=== PATIENT | female | born 1930 | race Caucasian/White ===

== ENCOUNTER 2019-06-12 21:50 | Observation (INO) ==
--- NOTE | 2019-06-12 22:25 | Emergency Department Note ---
ED Disposition Clinical Impression: Transient cerebral ischemia Qualifiers: Transient cerebral ischemia type: unspecified Qualified Code(s): G45.9 - Transient cerebral ischemic attack, unspecified Disposition: Admitted as Observation Condition on Discharge: Good Referrals: Rell Jimenez MD [Primary Care Provider] - - Critical Care Critical Care Time: No Attestation: On 06/12/19, the high probability of a clinically significant, sudden or life threatening deterioration of the following system(s) required my full and direct attention, intervention and personal management. The time I documented below is in addition to time spent performing reported procedures but includes the following listed in this critical care notation. Medical Decision Making - Medical Records Medical records reviewed: Yes: I reviewed the patient's medical records. - Aureliano Inquiry Pt receiving controlled substance: No Vital Signs: 06/12/19 21:55 Temperature 98.7 F Temperature Source Oral Pulse Rate [Right] 61 Respiratory Rate 18 Blood Pressure [Right Arm] 172/69 H Blood Pressure Mean [Right Arm] 103 02 Sat by Pulse Oximetry 92 L - Lab Data Lab results reviewed: Yes: I reviewed the patient's lab results. Lab Results 06/12/19 22:11: POC Glucose 84 06/12/19 22:26: WBC 6.0, RBC 4.90, Hgb 13.3, Hct 41.2, MCV 84.1, MCH 27.1, MCHC 32.3, RDW 12.8, Plt Count 231, MPV 6.9 L, Neut % (Auto) 51.2, Lymph % (Auto) 36.4, [place] % (Auto) 8.2, Eos % (Auto) 3.5, Baso % (Auto) 0.7, Neut # (Auto) 3.1, Lymph # (Auto) 2.2, [place] # (Auto) 0.5, Eos # (Auto) 0.2, Baso # (Auto) 0.0 06/12/19 22:26: Sodium 137, Potassium 4.0, Chloride 100, Carbon Dioxide 30, Anion Gap 11.0, BUN 16, Creatinine 0.89, Estimated Creat Clear 38, Estimated GFR 60, Est GFR ( Amer) 72, Glucose 89, Calcium 8.8, Total Bilirubin 0.5, AST 15, ALT 16, Alkaline Phosphatase 87, Total Protein 7.1, Albumin 3.3 L, Globulin 3.8 H, Albumin/Globulin Ratio 0.9 L 06/12/19 22:37: PT 10.3, INR 0.99, APTT 27.9 Result diagrams: 06/12/19 22:26 06/12/19 22:26 Orders (Tests/Meds): ED MEDICATIONS Generic Name Dose Route Start Last Admin Trade Name Shell PRN Reason Stop Dose Admin Sodium Chloride 1,000 mls @ 999 mls/hr 06/12/19 22:15 Sod Chlor 0.9% 1000ml Bag IV 06/12/19 23:15 .Q1H1M [facility] ORDERS Category Date Time Status CT head/brain wo con Stat Cat Scan 06/12/19 22:00 Taken XR chest portable Stat Exams 06/12/19 22:00 Ordered Lactic Acid Stat Lab 06/12/19 22:37 Received Troponin I Stat Lab 06/12/19 22:52 Ordered Urinalysis and Microscopic Stat Lab 06/12/19 22:00 Ordered Blood Culture Stat Micro 06/12/19 22:36 Received - Radiology Data #1 Image(s): Chest Image Reviewed: Yes I reviewed the patient's radiology image Preliminary Findings: Abnormal (nonspecific ) - CT Data CT Scan: Head Time Received: 22:[address] Reviewed: Yes: I have viewed the radiologist's interpretation Preliminary Findings: Abnormal - ECG Data Tracing #1 Arrhythmias present: wandering atrial pacemaker Ischemic changes: non-specific ST-T wave changes - Physician Consults Physician Consulted: ming Reason -: Admission Neuro HPI - General Chief Complaint: Neuro Symptoms/Deficit Stated Complaint: confussed Time Seen by Provider: 06/12/19 22:00 Mode of Arrival: Wheelchair Limitations: Altered Mental Status Description of Symptoms (Recalled from ER Triage Doc. by RN): Pt family states that pt called them and stated she was confused and "not feeling right" Family stated when they got to the house she was very weak and unable to walk or recall what had happened today. Pt family states they are unsure of last known normal time but this started 1.5 hours ago. - History of Present Illness HPI Narrative: acute episode of change in speech and more confused with sl weakness to rt lower and upper ext - better now - no fever or rash and no trauma Onset (ago): hour(s) Timing confirmed by: family member Location: right leg History of same: Yes Severity: moderate Quality: weak, improving On Anticoagulants: No Associated symptoms: denies other symptoms Treatments Prior to Arrival: none - Related Data Home Medications: Home Medications Medication Instructions Recorded Confirmed Atorvastatin Calcium [Atorvastatin 20 mg PO DAILY 06/14/18 06/12/19 20mg Tab] Lisinopril [Lisinopril 40mg Tablet] 40 mg PO DAILY 06/14/18 06/12/19 clonazePAM [Clonazepam] 1 mg PO TID 06/14/18 06/12/19 Temazepam [Restoril 15mg capsule] 15 mg PO HS 12/31/18 06/12/19 Rivastigmine [Exelon 4.6mg/24hr 1 patch TOPICAL DAILY 06/12/19 06/12/19 Patch] Allergies/Adverse Reactions: Allergies Allergy/AdvReac Type Severity Reaction Status Date / Time No Known Drug Allergies Allergy Unknown Verified 01/14/18 14:39 Stroke Alert/NIH Score - LOC Stroke Alert: Yes Location of Alert: Emergency Department Level of Consciousness: Alert LOC Questions: Answers both correctly LOC Commands: Obeys both correctly - Facial/Visual Best Gaze: Normal Visual: No visual loss Facial Palsy: Normal - Motor Motor Response, Left Arm: No drift/Amputation/Fused Motor Response, Right Arm: No drift/Amputation/Fused Motor Response, Left Leg: No drift/Amputation/Fused Motor Response, Right Leg: Drift - Sensory/Language Limb Ataxia: Absent Sensory: Normal Best Language: No aphasia Dysarthria: Normal speech, Intubated or Barrier present - NIH Score Stroke Risk Score: 1 H History - Hepatitis A Screen Drug use history?: No High risk sexual behaviors?: No History of sexually transmitted infection?: No Currently employed?: No Childcare worker?: No Do you have indoor plumbing?: Yes Do you have electricity?: Yes Attestation statement:: This patient has been screened for Hepatitis A risk factors. I have reviewed the patient's past medical history: Yes Medical History: Reports:: Anxiety, Gastroesophageal Reflux Disease(GERD), Hyperlipidemia, Hypertension Denies:: Cancer, Diabetes Mellitus Type 1, Diabetes Mellitus Type 2, MRSA Other Surgeries: Yes: Other (unknown dilation "in neck" 4-5 years ago) Amputation: No Fractures: No - Social History Smoking Status: Never smoker Alcohol Intake: never Occupational Status: retired Housing: apartment - Psychiatric History Pschychiatric History:: Reports:: Anxiety ROS Obtained: Yes All systems reviewed & no additional complaints - Constitutional Constitutional: Denies fever(s) - Eyes Eyes: Denies change in vision - ENT Ears, Nose, Mouth, and Throat: Denies sore throat - Cardiovascular Cardiovascular: Denies chest pain, Denies dyspnea - Respiratory Respiratory: No cough - Gastrointestinal Gastrointestingal: Denies: abdominal pain - Genitourinary Female Genitourinary: Denies flank pain - Musculoskeletal Musculoskeletal: Denies joint pain - Integumentary/Breasts Skin/Breast: Denies rash - Neurologic Neurologic: Reports as per HPI, Reports abnormal speech, Reports confusion, Denies frequent falls, Denies headache(s), Denies tingling/numbness/burning sensations, Denies seizure-like activity Physical Exam - General General appearance: alert, in no apparent distress - Head Head exam: normocephalic - Eye Eye exam: Present: PERRL, EOMI. Absent: scleral icterus - ENT ENT exam: Present: mucous membranes dry - Neck Neck exam: Present: trachea midline - Respiratory Respiratory exam: Absent: respiratory distress - Cardiovascular Cardiovascular exam: Present: regular rate, systolic murmur, +S4 - Abdominal Exam Abdominal exam: Present: soft - Extremities Exam Extremities exam: Absent: calf tenderness - Neurological Exam Neurological exam: Present: alert, CN II-XII intact. Absent: normal gait, motor sensory deficit - Psychiatric Psychiatric exam: Present: normal affect - Skin Skin exam: Absent: rash
[2019-06-12 22:37] LABS: Basophils % 0.7 % (0.1-2.0); Eosinophils # 0.2 K/mm3 (0.0-0.4); Eosinophils % 3.5 % (0.1-12.0); Hematocrit 41.2 % (37.0-47.0); Hemoglobin 13.3 g/dL (12.2-16.2); Lymphocytes # 2.2 K/mm3 (0.7-4.5); Lymphocytes % 36.4 % (10-50); Mean Corpuscular HGB Conc 32.3 g/dL (31.8-35.4); Mean Corpuscular Volume 84.1 fl (81-99); Mean Platelet Volume 6.9 fl (7.4-10.4); Monocytes # 0.5 K/mm3 (0.1-1.0); Monocytes % 8.2 % (1.7-9.3); Neutrophils # 3.1 K/mm3 (1.8-7.8); Neutrophils % 51.2 % (37.0-80.0); Platelet Count 231 K/mm3 (142-424); Red Cell Distribution Width 12.8 % (11.5-17.5)
[2019-06-12 22:48] LABS: Albumin Level 3.3 gm/dL (3.4-5.0); Albumin/Globulin Ratio 0.9 (1.1-1.8); Bilirubin,Total 0.5 mg/dL (0.2-1.0); Calcium 8.8 mg/dL (8.5-10.1); Globulin 3.8 gm/dl (1.3-3.2); Total Protein,Serum 7.1 gm/dL (6.4-8.2)
[2019-06-12 22:58] LABS: Activated Partial Thrombo Time 27.9 seconds (23.6-34.0); INR 0.99 (0.9-1.1); Prothrombin Time 10.3 seconds (9.4-11.8)
[2019-06-12 23:11] LABS: Appearance,Urine CLEAR (Clear); Bilirubin,Urine Negative (Negative); Blood, Urine Negative (Negative); Color,Urine YELLOW (Yellow); Glucose,Urine (UA) Negative (Negative); Ketones,Urine Negative (Negative); Leukocyte Esterase,Urine Negative (Negative); Microscopic, Urine URINE MICROSCOPIC (MICROSCOPIC); PH,Urine 6.5 (5.0-8.5); Protein,Urine Negative (Negative); Urobilinogen,Urine 0.2 EU/dl (0.2)
[2019-06-12 23:16] LABS: WBC,Urine Occasional #/hpf (0-3)
[2019-06-12 23:17] LABS: Bacteria,Urine Trace /lpf
--- NOTE | 2019-06-13 07:03 | History & Physical Report ---
*Admission Date: 06/12/19 *Chief complaint: Weakness and confusion *History of present illness: 89-year-old female with hypercholesterolemia, anxiety disorder, dementia presented to the emergency department with family due to concerns about change in patient's behavior and apparent confusion. History this morning is taken from her great-grandson's who is at bedside. According to her the patient seemed quite energetic and almost agitated yesterday during the day. Then when talking with her daughter in the evening it became apparent that something had changed. Patient was confused when speaking with her daughter on the phone and asking questions like "where am I ", "what day is it". Her speech was altered as well and was slurred. Family decided to bring patient to the emergency department. Patient also complained of her right arm and leg feeling as if it was asleep. Patient was evaluated in the emergency department. Blood pressure was elevated on presentation. ER note indicates patient had a right pronator drift but as the stay prolonged in the ER symptoms resolved. Patient was d iagnosed with a TIA and admitted. This morning the patient cannot tell me why she came to the ER or why she is in the hospital [facility] History I have reviewed the patient's past medical history: Yes Medical History: Reports:: Anxiety, Gastroesophageal Reflux Disease(GERD), Hyperlipidemia, Hypertension Denies:: Cancer, Diabetes Mellitus Type 1, Diabetes Mellitus Type 2, MRSA *Have you ever received a pneumonia vaccine?: Yes *Have you received a flu vaccine this season?: Yes Other Medical History: Reports: Arthritis Other Surgeries: Yes: Other (unknown dilation "in neck" 4-5 years ago) Amputation: No Fractures: No - *Social History Smoking Status: Former smoker Tobacco Type: cigars Alcohol Intake: never *Occupational Status:: retired Housing: apartment *Travel in the last 8 weeks: None - Psychiatric History Expresses thoughts of harming self/others: None Suicide Plan Description: No Plan Pschychiatric History:: Reports:: Anxiety Family Hx:: Bleeding Disorder, Coronary Artery Disease, Diabetes, Heart Attack, Hyperlipidemia, Hypertension, Stroke Review of Systems - Review of Systems Review of systems:: unable to obtain (Unable to obtain from patient due to significant memory deficit) - *Neurologic Reports abnormal speech, Reports confusion, Denies frequent falls, Denies headache(s), Denies tingling/numbness/burning sensations, Denies seizure-like activity Meds Home Medications Medication Instructions Recorded Confirmed Type Atorvastatin Calcium [Atorvastatin 20 mg PO DAILY 06/14/18 06/12/19 History 20mg Tab] Lisinopril [Lisinopril 40mg Tablet] 40 mg PO DAILY 06/14/18 06/12/19 History clonazePAM [Clonazepam] 1 mg PO TID 06/14/18 06/12/19 History Temazepam [Restoril 15mg capsule] 15 mg PO HS 12/31/18 06/12/19 History Rivastigmine [Exelon 4.6mg/24hr 1 patch TOPICAL DAILY 06/12/19 06/12/19 History Patch] Allergies Allergy/AdvReac Type Severity Reaction Status Date / Time No Known Drug Allergies Allergy Unknown Verified 01/14/18 14:39 Exam Vital signs and Labs for Last 24 Hours: Temp Pulse Resp BP Pulse Ox 97.4 F L 60 16 133/64 95 06/13/19 03:45 06/13/19 04:00 06/13/19 03:45 06/13/19 03:45 06/13/19 03:45 Laboratory Results - last 24 hr 06/12/19 22:11: POC Glucose 84 06/12/19 22:26: WBC 6.0, RBC 4.90, Hgb 13.3, Hct 41.2, MCV 84.1, MCH 27.1, MCHC 32.3, RDW 12.8, Plt Count 231, MPV 6.9 L, Neut % (Auto) 51.2, Lymph % (Auto) 36.4, [place] % (Auto) 8.2, Eos % (Auto) 3.5, Baso % (Auto) 0.7, Neut # (Auto) 3.1, Lymph # (Auto) 2.2, [place] # (Auto) 0.5, Eos # (Auto) 0.2, Baso # (Auto) 0.0 06/12/19 22:26: Sodium 137, Potassium 4.0, Chloride 100, Carbon Dioxide 30, Anion Gap 11.0, BUN 16, Creatinine 0.89, Estimated Creat Clear 38, Estimated GFR 60, Est GFR ( Amer) 72, Glucose 89, Calcium 8.8, Total Bilirubin 0.5, AST 15, ALT 16, Alkaline Phosphatase 87, Total Protein 7.1, Albumin 3.3 L, Globulin 3.8 H, Albumin/Globulin Ratio 0.9 L 06/12/19 22:26: Troponin I < 0.02 06/12/19 22:37: PT 10.3, INR 0.99, APTT 27.9 06/12/19 22:37: Lactate 0.7 06/12/19 23:03: Urine Color Yellow, Urine Appearance Clear, Urine pH 6.5, Ur Specific [place] 1.010, Urine Protein Negative, Urine Glucose (UA) Negative, Urine Ketones Negative, Urine Blood Negative, Urine Nitrate Negative, Urine Bilirubin Negative, Urine Urobilinogen 0.2, Ur Leukocyte Esterase Negative, Urine WBC Occasional, Ur Squamous Epith Cells 3-5, Urine Bacteria Trace 06/13/19 02:40: Troponin I < 0.02 I & O for Last 24 hours: Intake & Output 06/10/19 06/11/19 06/12/19 06/13/19 11:59 11:59 11:59 11:59 Weight 138 lb 8 oz Narrative: Patient awakens to voice this morning. She does not know what day it is. ENT exam reveals normal external ears, oropharynx is moist. Eyes have intact extraocular movements. Neck has no carotid bruits. Lungs are clear to auscultation. Heart has a regular rate and rhythm. Abdomen is soft. Neurologic exam is limited but patient does have intact range of motion in all 4 extremities. There is no sensory deficit of the upper or lower extremities. Attempted to test pronator drift but patient's drowsy state prohibited full cooperation with neurologic exam. Strength assessment did reveal some questionable right senior care provider strength weakness when compared to left although the patient is diffusely weak. Lower extremity assessment was equivocal Assessment and Plan (1) Transient cerebral ischemia Current visit: Yes Status: Acute Qualifiers: Transient cerebral ischemia type: unspecified Qualified Code(s): G45.9 - Transient cerebral ischemic attack, unspecified Category: Medical Code(s): G45.9 - Transient cerebral ischemic attack, unspecified - Assessment and plan all Dx Assessment and Plan for all problems:: 1. Echocardiogram and carotid Dopplers today 2. Start aspirin 81 mg daily 3. Patient has underlying dementia and I am going to change her clonazepam to as needed. 4. Event was likely precipitated by patient's elevated blood pressure. Blood pressures have returned to a normal level at this time. Continue to monitor. 5. Anticipate discharge tomorrow while work-up is ongoing today. Had a discussion with family at bedside about the patient. At 89 it sounds like she is struggling to live alone. Family is helping as much as possible and are trying to facilitate placement.
[2019-06-13 07:11] LABS: Basophils % 0.6 % (0.1-2.0); Eosinophils # 0.2 K/mm3 (0.0-0.4); Eosinophils % 3.3 % (0.1-12.0); Hematocrit 36.6 % (37.0-47.0); Lymphocytes # 2.3 K/mm3 (0.7-4.5); Lymphocytes % 41.8 % (10-50); Mean Corpuscular HGB Conc 32.7 g/dL (31.8-35.4); Mean Corpuscular Volume 84.5 fl (81-99); Mean Platelet Volume 6.9 fl (7.4-10.4); Monocytes # 0.5 K/mm3 (0.1-1.0); Monocytes % 8.5 % (1.7-9.3); Neutrophils # 2.5 K/mm3 (1.8-7.8); Neutrophils % 45.8 % (37.0-80.0); Platelet Count 199 K/mm3 (142-424); Red Blood Count 4.33 M/mm3 (4.20-5.40); Red Cell Distribution Width 12.9 % (11.5-17.5); White Blood Count 5.4 K/mm3 (4.8-10.8)
[2019-06-13 07:14] LABS: Anion Gap 7.6 mEq/L (5-15); Calcium 8.4 mg/dL (8.5-10.1)
--- NOTE | 2019-06-13 07:35 | Pharmacy Consult Notes ---
[facility] Pharmacy VTE Monitoring - Patient Demographics Admission date: 06/12/19 Report Date: 06/13/19 Time: 07:35 Allergies/Adverse Reactions: Patient Allergies No Known Drug Allergies Allergy (Unknown, Verified 01/14/18 14:39) Height: 1.63 m Weight: 62.823 kg Patient Problems: Current Active Problems (Updated 06/12/19 @ 23:16 by Slava Lau MD) Transient cerebral ischemia (Acute) - VTE Risk Labs: VTE Related Lab Results Hgb 12.0 g/dL (12.2-16.2) L 06/13/19 05:43 Hct 36.6 % (37.0-47.0) L 06/13/19 05:43 Plt Count 199 K/mm3 (142-424) 06/13/19 05:43 PT 10.3 seconds (9.4-11.8) 06/12/19 22:37 INR 0.99 (0.9-1.1) 06/12/19 22:37 APTT 27.9 seconds (23.6-34.0) 06/12/19 22:37 BUN 14 mg/dL (7-18) 06/13/19 05:43 Creatinine 0.90 mg/dL (0.55-1.02) 06/13/19 05:43 Estimated Creat Clear 38 mL/min (50-200) 06/13/19 05:43 VTE Score: 3 VTE Risk Level: Low Risk - Prophylaxis VTE Prophylaxis Ordered?: Yes Types of VTE Prophylaxis: TEDS Knee High Location of Applied Device: Bilateral Lower Extremeties - VTE Diagnosis Confirmed Treatment or plan recommended: Continue Current Treatment
--- NOTE | 2019-06-13 09:09 | Carotid Imaging Report ---
"Cerebrovascular Exam Indications: TIA 434.91. IMPRESSIONS 1. The bilateral vertebral arteries are patent with normal antegrade flow. 2. Study suggests 20-49% stenosis involving the right internal carotid artery. 3. Study suggests 20-49% stenosis involving the left internal carotid artery. History: Risk factors: Hypertension. Hyperlipidemia. Carotid duplex study. Complete study and Doppler flow study including spectral analysis, color and romero scale imaging. Height: Height: 162.6cm. Height: 64in. Weight: Weight: 62.6kg. Weight: 137.7lb. Body mass index: BMI: 23.7kg/m^2. Body surface area: BSA: 1.69m^2. Location: Bedside. Patient status: Inpatient. Tables: Arterial flow: + +--------+--------+ |Location |V sys |V ed | + +--------+--------+ |Right CCA - proximal|81.4cm/s|10.6cm/s| + +--------+--------+ |Right CCA - distal |74cm/s |10.6cm/s| + +--------+--------+ |Right ECA |140cm/s |4cm/s | + +--------+--------+ |Right ICA - proximal|72.4cm/s|11.9cm/s| + +--------+--------+ |Right ICA - mid |69.7cm/s|15.3cm/s| + +--------+--------+ |Right ICA - distal |85cm/s |19.6cm/s| + +--------+--------+ |Right vertebral |40.9cm/s|11.8cm/s| + +--------+--------+ |Left CCA - proximal |88.3cm/s|13.2cm/s| + +--------+--------+ |Left CCA - distal |85.7cm/s|11.2cm/s| + +--------+--------+ |Left ECA |120cm/s |1.6cm/s | + +--------+--------+ |Left ICA - proximal |58.2cm/s|11.1cm/s| + +--------+--------+ |Left ICA - mid |72.1cm/s|14.7cm/s| + +--------+--------+ |Left ICA - distal |59.9cm/s|17.7cm/s| + +--------+--------+ |Left vertebral |47.1cm/s|11.2cm/s| + +--------+--------+ Velocity ratios: + + + + + + | |Right, V sys|Right, V ed|Left, V sys|Left, V ed| + + + + + + |Max ICA/dist CCA|1.15 |1.85 |0.84 |1.58 | + + + + + + (Report amended ) Electronically signed by: Shawn Masterson [id number]"
--- NOTE | 2019-06-14 07:07 | Discharge Summary ---
General - General Admission date:: 06/12/19 Discharge date: 06/14/19 HPI HPI: 89-year-old female with hypercholesterolemia, anxiety disorder, dementia presented to the emergency department with family due to concerns about change in patient's behavior and apparent confusion. History this morning is taken from her great-grandson's who is at bedside. According to her the patient seemed quite energetic and almost agitated yesterday during the day. Then when talking with her daughter in the evening it became apparent that something had changed. Patient was confused when speaking with her daughter on the phone and asking questions like "where am I ", "what day is it". Her speech was altered as well and was slurred. Family decided to bring patient to the emergency department. Patient also complained of her right arm and leg feeling as if it was asleep. Patient was evaluated in the emergency department. Blood pressure was elevated on presentation. ER note indicates patient had a right pronator drift but as the stay prolonged in the ER symptoms resolved. Patient was diagnosed with a TIA and admitted. This morning the patient cannot tell me why she came to the ER or why she is in the hospital Hospital Course Hospital Course: Patient was admitted for observation. Symptoms had resolved by the time the patient had arrived to the medical floor. [facility] The following morning on June 13 patient was started on aspirin 81 mg daily. She was continued on her home antihypertensives but her clonazepam was changed from scheduled to as needed dosing. She was also continued on her statin. PT and OT were consulted. It was felt patient would best be served with continued home health physical therapy when she returned home. Home health physical therapy will be arranged for patient due to her TIA patient continued to remain symptom-free throughout the day on June 13. Carotid Dopplers revealed less than 50% stenosis bilaterally of the internal carotid arteries. Echocardiogram performed showed a normal ejection fraction of 50 to 60% with no intracardiac thrombus. On the morning of the June 14 patient remained asymptomatic and was discharged home. Objective Vital signs: Temp Pulse Resp BP Pulse Ox 98.1 F 50 L 17 146/64 H 94 L 06/14/19 00:00 06/14/19 04:00 06/14/19 00:00 06/14/19 00:00 06/14/19 00:00 no acute distress - *Routine HEENT Exam Eye: Present: EOMI ENT: Present: mucous membranes moist - *Routine Neck Exam Absent: carotid bruit - *Routine Respiratory Exam Present: CTA bilaterally - *Routine Cardiovascular Exam Present: RRR - *Routine Neurological Exam Present: alert, oriented X3, CN II-XII intact, abnormal gait (Ambulates with walker). Absent: sensory deficit, motor deficit, pronator drift, altered mental status, clonus, facial asymmetry Results Labs on day of discharge: Labs from last 24 hours 06/13/19 06/13/19 05:43 05:43 WBC 5.4 RBC 4.33 Hgb 12.0 L Hct 36.6 L MCV 84.5 MCH 27.7 MCHC 32.7 RDW 12.9 Plt Count 199 MPV 6.9 L Neut % (Auto) 45.8 Lymph % (Auto) 41.8 [place] % (Auto) 8.5 Eos % (Auto) 3.3 Baso % (Auto) 0.6 Neut # (Auto) 2.5 Lymph # (Auto) 2.3 [place] # (Auto) 0.5 Eos # (Auto) 0.2 Baso # (Auto) 0.0 Sodium 138 Potassium 3.6 Chloride 103 Carbon Dioxide 31 Anion Gap 7.6 BUN 14 Creatinine 0.90 Estimated Creat Clear 38 Estimated GFR 59 Est GFR ( Amer) 71 Glucose 82 Calcium 8.4 L Magnesium 1.8 DS: Diagnosis - Discharge Diagnosis (1) Transient cerebral ischemia Status: Acute Discharge Plan - Patient Discharge Instructions ACTIVITY: Continue current activity DIET: continue same diet Patient Instructions: DI for Transient Ischemic Attack - Follow up Plan Follow up with: Rell Jimenez MD [Primary Care Provider] - Disposition: Home, Self-Shelter Medications: Home Medications Medication Instructions Recorded Confirmed Type Atorvastatin Calcium [Atorvastatin 20 mg PO DAILY 06/14/18 06/12/19 History 20mg Tab] Lisinopril [Lisinopril 40mg Tablet] 40 mg PO DAILY 06/14/18 06/12/19 History Temazepam [Restoril 15mg capsule] 15 mg PO HS 12/31/18 06/12/19 History Rivastigmine [Exelon 4.6mg/24hr 1 patch TD DAILY 06/12/19 06/13/19 History Patch] clonazePAM [Clonazepam] 1 mg PO QID 06/13/19 06/13/19 History Prescriptions/Medication Reconciliation: Continued Atorvastatin Calcium [Atorvastatin 20mg Tab] 20 mg PO DAILY Temazepam [Restoril 15mg capsule] 15 mg PO HS Lisinopril [Lisinopril 40mg Tablet] 40 mg PO DAILY Rivastigmine [Exelon 4.6mg/24hr Patch] 1 patch TD DAILY Changed clonazePAM [Clonazepam] 1 mg PO BIDP PRN #60 PRN Reason: Anxiety
--- NOTE | 2019-06-14 11:20 | Cardiology Report ---
PROCEDURE: 2-D M-mode and color Doppler study INDICATIONS FOR THE TEST: Chest pain COPD Heart Murmur Tobacco Smoking Palpitations Fatigue Syncope Edema Hypertension+Diabetes Mellitus Rheumatic Fever SOB BOX Obesity Hyperlipidemia+ Family History HD Additional History TIA PATIENT INFORMATION HEIGHT: 64 WEIGHT: 138 GENDER: Female B/P: 172/69 2-D/M-MODE INTERPRETATION: 2-D MEASUREMENTS OBSERVED VALUES IN CMS Right Ventricular Dimension (RVDd) 1.6 Interventricular Septum (Thickness)(IVsd) 1.0 Left Ventricular Internal Dimensions(LVIDd) 2.5 Left Ventricular Posterior Wall (Thickness)(LVPWd) 1.0 Aortic Root 2.6 Aortic Cusp Separation 2.1 Left Atrial Dimensions (LAD) 3.1 2D 1. Left atrium is mildly enlarged, left ventricle is normal size, there is mild concentric left ventricular hypertrophy, visually estimated ejection fraction 55% with no regional wall motion abnormality. 2. The right atrium and right ventricle are normal size and contractility. 3. The aortic valve is minimally thickened fibrosed. 4. The mitral and tricuspid valve are grossly normal. 5. The pulmonic valve is poorly visualized. 6. No significant pericardial effusion noted. DOPPLER INTERROGATION: Doppler interrogation of the aortic, mitral and tricuspid valvular presence of mild mitral and tricuspid regurgitation, tricuspid regurgitation jet velocity is inadequate for calculation of the right ventricular systolic pressure, grade 1 diastolic dysfunction seen without tissue Doppler evidence of raised left atrial pressure. Inferior vena cava is not well visualized CONCLUSION: 1. Mildly enlarged left atrium, normal left ventricular size, mild concentric left ventricular hypertrophy, visually estimated ejection fraction 55% with no regional wall motion abnormality. Grade 1 diastolic dysfunction seen without tissue Doppler evidence of raised left atrial pressure. 2. Mild mitral and tricuspid regurgitation 3. No significant pericardial effusion noted.
== END 2019-06-14 12:14 | disposition home or self-care (01) ==
LOC: 2ND 21:50 → ER 21:50 → 2ND 23:00
PROVIDERS: ADMIT Internal Medicine Adolescent Medicine; ATTEND Family Medicine
DX: E78.5 Hyperlipidemia, unspecified; I10 Essential (primary) hypertension; F03.90 Unspecified dementia, unspecified severity, without behavioral disturbance, psychotic disturbance, mood disturbance, and anxiety; Z79.899 Other long term (current) drug therapy; G45.9 Transient cerebral ischemic attack, unspecified; K21.9 Gastro-esophageal reflux disease without esophagitis; R47.81 Slurred speech
CPT/HCPCS: 36415; 70450; 71010; 71045; 80048; 80053; 81001; 82962; 83605; 83735; 84484; 85025; 85610; 85730; 87040; 93005; 93306; 93880; 96365; 96372; 97116; 97162; 97165; 97535; 99283; G0378; J2405